=== PATIENT | female | born 1975 | race American Indian/Alaskan Native ===

== ENCOUNTER 2018-12-05 11:41 | Emergency (ER) | payer SELFPAY ==
[2018-12-05] MEDS ORDERED: ATIVAN IM ONE (12:17)
[2018-12-05] MEDS ORDERED: GEODON IM ONE (12:17)
[2018-12-05 13:28] LABS: Hematocrit 40.7 % (30.3-42.9); Hemoglobin 13.7 gm/dl (10.1-14.3); Mean Corpuscular HGB Conc 34 % (30-34); Mean Corpuscular Volume 89 fl (79-97); Platelet Count 234 K/mm3 (140-440); Red Blood Count 4.58 M/mm3 (3.65-5.03); Red Cell Distribution Width 13.6 % (13.2-15.2)
[2018-12-05 13:40] LABS: Basophils % (Auto) 0.2 % (0.0-1.8); Eosinophils # (Auto) 0.1 K/mm3 (0.0-0.4); Eosinophils % (Auto) 1.8 % (0.0-4.3); Lymphocytes # (Auto) 2.1 K/mm3 (1.2-5.4); Lymphocytes % (Auto) 33.8 % (13.4-35.0); Monocytes # (Auto) 0.5 K/mm3 (0.0-0.8); Monocytes % (Auto) 7.3 % (0.0-7.3)
[2018-12-05 13:45] LABS: BUN/Creatinine Ratio 18; Blood Urea Nitrogen 9 mg/dL (7-17); Calcium 9.1 mg/dL (8.4-10.2); Hemolysis Index 28
[2018-12-05 13:46] LABS: Creatine Kinase MB 1.5 ng/mL (0.0-4.0)
--- NOTE | 2018-12-05 14:04 | Emergency Department Report ---
ED General Adult HPI - General Chief complaint: Psych Stated complaint: WITHDRAWLS Time Seen by Provider: 12/05/18 12:03 Source: EMS Mode of arrival: Stretcher Limitations: Altered Mental Status - History of Present Illness Initial comments: 43-year-old female who is in the [facility]. There is little information available about this patient. Apparently she has been agitated today. Current medications includes Suboxone Ativan Trileptal Paxil trazodone and Seroquel. Apparently she has a history of a psychotic disorder. Patient is essentially poorly cooperative with exam. She is oriented to her name and fact that she is in a hospital. She is agitated. She is not providing very much information. Severity scale (0 -10): 0 - Related Data Allergies Allergy/AdvReac Type Severity Reaction Status Date / Time No Known Allergies Allergy Verified 12/05/18 11:58 ED Review of Systems ROS: Stated complaint: WITHDRAWLS Other details as noted in HPI Comment: Unobtainable due to pts medical conditions ED Past Medical Hx - Past Medical History Previous Medical History?: Yes Additional medical history: heroin addiction - Surgical History Past Surgical History?: No - Social History Smoking Status: Current Every Day Smoker Substance Use Type: Alcohol ED Physical Exam - General Limitations: Other (agitated) General appearance: alert, in no apparent distress - Head Head exam: Present: atraumatic, normocephalic - Eye Eye exam: Present: normal appearance. Absent: scleral icterus - ENT ENT exam: Present: mucous membranes moist - Neck Neck exam: Present: normal inspection. Absent: tenderness, meningismus - Respiratory Respiratory exam: Present: normal lung sounds bilaterally. Absent: respiratory distress - Cardiovascular Cardiovascular Exam: Present: regular rate, normal rhythm. Absent: systolic murmur, diastolic murmur, rubs, gallop - GI/Abdominal GI/Abdominal exam: Present: soft, normal bowel sounds. Absent: distended, tende rness, guarding, rebound, rigid - Extremities Exam Extremities exam: Present: normal inspection - Back Exam Back exam: Present: normal inspection - Neurological Exam Neurological exam: Present: alert, oriented X3 (basically), CN II-XII intact (as testable). Absent: motor sensory deficit - Psychiatric Psychiatric exam: Present: normal affect, normal mood - Skin Skin exam: Present: warm, dry, intact, normal color. Absent: rash ED Course Vital Signs 12/05/18 12/05/18 12/05/18 12:00 12:14 12:16 Temperature 98.2 F Pulse Rate 84 Respiratory 16 Rate Blood Pressure 116/83 O2 Sat by Pulse 93 98 96 Oximetry 12/05/18 12/05/18 12:25 12:30 Temperature 98.2 F Pulse Rate 89 Respiratory 19 Rate Blood Pressure 104/74 O2 Sat by Pulse 97 Oximetry - Reevaluation(s) Reevaluation #1: She was given Geodon and Ativan with improvement. She is placed on a 1013. Mental health consultation is pending. She will be given when necessary Geodon and Ativan at this point. 12/05/18 14:12 ED Medical Decision Making - Lab Data Result diagrams: 12/05/18 12:58 12/05/18 12:58 Laboratory Results - last 24 hr 12/05/18 12/05/18 12/05/18 12:58 12:58 12:58 WBC RBC Hgb Hct MCV MCH MCHC RDW Plt Count Lymph % (Auto) [place] % (Auto) Eos % (Auto) Baso % (Auto) Lymph # [place] # Eos # Baso # Seg Neutrophils % Seg Neutrophils # Sodium 140 Potassium 3.8 Chloride 104.6 Carbon Dioxide 24 Anion Gap 15 BUN 9 Creatinine 0.5 L Estimated GFR > 60 BUN/Creatinine Ratio 18 Glucose 104 H Calcium 9.1 Total Creatine Kinase CK-MB (CK-2) CK-MB (CK-2) Rel Index Salicylates 4.7 Acetaminophen < 5.0 L Plasma/Serum Alcohol 12/05/18 12/05/18 12/05/18 12:58 12:58 12:58 WBC 6.4 RBC 4.58 Hgb 13.7 Hct 40.7 MCV 89 MCH 30 MCHC 34 RDW 13.6 Plt Count 234 Lymph % (Auto) 33.8 [place] % (Auto) 7.3 Eos % (Auto) 1.8 Baso % (Auto) 0.2 Lymph # 2.1 [place] # 0.5 Eos # 0.1 Baso # 0.0 Seg Neutrophils % 56.9 Seg Neutrophils # 3.5 Sodium Potassium Chloride Carbon Dioxide Anion Gap BUN Creatinine Estimated GFR BUN/Creatinine Ratio Glucose Calcium Total Creatine Kinase 94 CK-MB (CK-2) 1.5 CK-MB (CK-2) Rel Index 1.5 Salicylates Acetaminophen Plasma/Serum Alcohol < 0.01 Laboratory Results - last 24 hr 12/05/18 12/05/18 12/05/18 12:58 12:58 12:58 WBC RBC Hgb Hct MCV MCH MCHC RDW Plt Count Lymph % (Auto) [place] % (Auto) Eos % (Auto) Baso % (Auto) Lymph # [place] # Eos # Baso # Seg Neutrophils % Seg Neutrophils # Sodium 140 Potassium 3.8 Chloride 104.6 Carbon Dioxide 24 Anion Gap 15 BUN 9 Creatinine 0.5 L Estimated GFR > 60 BUN/Creatinine Ratio 18 Glucose 104 H Calcium 9.1 Total Creatine Kinase CK-MB (CK-2) CK-MB (CK-2) Rel Index Salicylates 4.7 Acetaminophen < 5.0 L Plasma/Serum Alcohol 12/05/18 12/05/18 12/05/18 12:58 12:58 12:58 WBC 6.4 RBC 4.58 Hgb 13.7 Hct 40.7 MCV 89 MCH 30 MCHC 34 RDW 13.6 Plt Count 234 Lymph % (Auto) 33.8 [place] % (Auto) 7.3 Eos % (Auto) 1.8 Baso % (Auto) 0.2 Lymph # 2.1 [place] # 0.5 Eos # 0.1 Baso # 0.0 Seg Neutrophils % 56.9 Seg Neutrophils # 3.5 Sodium Potassium Chloride Carbon Dioxide Anion Gap BUN Creatinine Estimated GFR BUN/Creatinine Ratio Glucose Calcium Total Creatine Kinase 94 CK-MB (CK-2) 1.5 CK-MB (CK-2) Rel Index 1.5 Salicylates Acetaminophen Plasma/Serum Alcohol < 0.01 Critical care attestation.: If time is entered above; I have spent that time in minutes in the direct care of this critically ill patient, excluding procedure time. ED Disposition Clinical Impression: Acute psychosis Disposition: DC/TX-65 PSY HOSP/PSY UNIT Is pt being admited?: No Does the pt Need Aspirin: No Condition: Stable Time of Disposition: 14:16
[2018-12-05] MEDS ORDERED: ALUM-MAG HYDROX-SIMETH 200-200-20MG/5ML PO PRN (14:19)
[2018-12-05] MEDS ORDERED: MILK OF MAGNESIA PO PRN (14:19)
[2018-12-05] MEDS: ATIVAN PO SCH ×2 (19:00→22:03)
[2018-12-05] MEDS: GEODON PO SCH ×2 (19:00→22:03)
[2018-12-05 19:17] LABS: Bilirubin,Urine NEG (Negative); Blood,Urine NEG (Negative); Color,Urine Yellow (Yellow); Mucus,Urine FEW /HPF; Protein,Urine <15 mg/dL mg/dL (Negative); Urobilinogen,Urine < 2.0 mg/dL (<2.0)
[2018-12-05 19:23] LABS: Amphetamine Screen,Urine PRESUMPTIVE NEGATIVE; Benzodiazepines Screen,Urine PRESUMPTIVE NEGATIVE; Cannabinoid Screen,Urine PRESUMPTIVE NEGATIVE; Cocaine Screen,Urine PRESUMPTIVE NEGATIVE
[2018-12-05 19:50] LABS: Methadone Screen,Urine PRESUMPTIVE POSITIVE; Opiate Screen,Urine PRESUMPTIVE POSITIVE
[2018-12-06] MEDS: GEODON PO SCH (10:15)
[2018-12-06] MEDS: ATIVAN PO SCH (10:15)
[2018-12-06] MEDS ORDERED: ZOFRAN ODT ONE (12:29)
[2018-12-06] MEDS ORDERED: ZOFRAN ODT PO ONE (12:29)
[2018-12-06] MEDS: TYLENOL PO PRN (12:30)
--- NOTE | 2018-12-06 13:31 | Consultation ---
History of Present Illness - Reason for Consult Consult date: 12/06/18 Reason for consult: Mental Health Evaluation Requesting physician: DEVON ALLISON - Chief Complaint Chief complaint: "I feel horrible" - History of Present Psychiatric Illness 43-year-old white female who presented to the ER from [facility]. Psychiatry was consulted to see the patient because bizzare behavior. Today the patient is calm during the assessment. She could not explain what happened yesterday at [facility] logically. She stated that she last used heroin 2 days ago and feel horrible at this time. She stated that her body "hurts" and feel "very anxious." She acknowledged SI's yesterday because she was feeling "bad." She denies SI's when asked today. She stated that she has a hx of depression and opiate abuse. She state that she take Paxil. She denies SI/HI's and AVH's. She stated that her sleep is "off," but denies a poor appetite. She denies alcohol consumption and recreational drug use. Medications and Allergies Allergies Allergy/AdvReac Type Severity Reaction Status Date / Time No Known Allergies Allergy Verified 12/05/18 14:22 Active Meds: Active Medications Acetaminophen (Tylenol) 650 mg PO Q4HR PRN PRN Reason: Pain MILD(1-3)/Fever >100.5/CEJA Last Admin: 12/06/18 12:30 Dose: 650 mg Documented by: Al Hydrox/Mg Hydrox/Simethicone (Alum-Mag Hydrox-Simeth [phone]/5ml) 30 ml PO Q4HR PRN PRN Reason: Indigestion Lorazepam (Ativan) 1 mg IV Q12HR PRN PRN Reason: Agitation Magnesium Hydroxide (Milk Of Magnesia) 30 ml PO Q12HR PRN PRN Reason: Constipation Ziprasidone (Geodon) 10 mg IM Q12H PRN PRN Reason: Agitation Past psychiatric history - Past Medical History Past Medical History: No medical history Past Surgical History: No surgical history - past Psychiatric treatment and history psychiatric treatment history: Hx of alcohol and substance abuse. Denies a fam psy hx. - Social History Social history: Lives alone Mental Status Exam - Vital signs Last Vital Signs Temp 98.0 F 12/06/18 08:00 Pulse 68 12/06/18 08:00 Resp 16 12/06/18 08:00 BP 114/62 12/06/18 08:00 Pulse Ox 98 12/06/18 08:00 - Exam Narrative exam: MSE: Appearance: calm, cooperative Behavior: regular eye contact Speech: regular rate and tone Mood: "bad' Affect: flat Thought Process: circumstantial Thought Content: denies SI/HI's and VH's Motor Activity: sitting up in bed Cognition: A/O x3 Insight: variable Judgment: variable Results Result Diagrams: 12/05/18 12:58 12/05/18 12:58 Abnormal lab results 12/05/18 12/05/18 Range/Units 12:58 12:58 Creatinine 0.5 L (0.7-1.2) mg/dL Glucose 104 H (65-100) mg/dL Acetaminophen < 5.0 L (10.0-30.0) ug/mL All other labs normal. Assessment and Plan Assessment and plan: Impression: Hx of Depressiopn. Opioid Use DO. Today the patent is calm during the assessment. Recommendation/Plan: Reevaluate 1013 in 24 hours. Sart Paxil 10 mg PO HS for depression, Clonidine 0.05 mg PO BID for anxiety, Robaxin 500 mg PO BID for muscle aches. Vistaril 25 mg PO Q6hrs PRN for acute anxiety. Discussed possible suicidality/medication induced memo/priapism with the patient reference Paxil. Dispo: If the 1013 is rescinded in 24 hours, the patient can follow up with [facility] and [facility] for outpatient psy services. Will staff with Dr Danielle Rodrigues.
[2018-12-06] MEDS: CATAPRES PO SCH (14:31)
[2018-12-06] MEDS: ROBAXIN PO SCH (14:31)
[2018-12-06] MEDS: ATIVAN IV PRN (18:04)
[2018-12-06] MEDS: VISTARIL PO PRN (19:03)
[2018-12-06] MEDS: GEODON IM PRN (20:00)
[2018-12-06] MEDS: PAXIL PO SCH (23:30)
[2018-12-07] MEDS: CATAPRES PO SCH ×3 (00:03→22:15)
[2018-12-07] MEDS: ROBAXIN PO SCH ×3 (00:04→22:15)
[2018-12-07] MEDS ORDERED: MAGNESIUM SULFATE 2GM/50ML 0 GM/0 ML BAG IV ONE (07:16)
[2018-12-07] MEDS: ATIVAN IV PRN ×2 (08:01→15:29)
[2018-12-07] MEDS ORDERED: WATER FOR INJ Sterile (PF) 10 ML ONE (09:17)
[2018-12-07] MEDS: GEODON IM PRN ×2 (09:22→15:30)
[2018-12-07] MEDS: VISTARIL PO PRN (11:55)
--- NOTE | 2018-12-07 13:17 | Progress Note ---
Subjective - Reason for Consult Reason for consult: withdrawal syndrome - Chief Complaint Chief complaint: Subjective patient continues to have persistence in severe withdrawal symptoms. She is very dysphoric and tearful today. Patient was fairly labile and unable to create her own coherent plan to address her mental health care. Additionally, patient struggled through formulates a coherent narrative of how she ended up at [facility]. Patient I reviewed her symptoms and decided the best for her to transition to inpatient care to detox from opiates and potentially get on Suboxone standing dose. Currently patient appears to be having signs and symptoms of severe mood lability. It's unclear if this is primarily related to withdrawal syndrome or if she has an underlying mood disorder. It is clear, she is having severe anxiety that's comorbid in this episode. General Appearance: disheveled, in distress Sensorium/Consciousness: sedated Orientation: person, place, time and situation Eye Contact: limited Attitude / Behavior: distracted Psychomotor & Musculoskeletal Activity: PMA Mood: not good Affect: labile Speech / Language: increased rate Thought Processes: concrete Thought Content: no SI, preoccupied, cognitive distortions Perception: no AVH Insight: limited Judgement: limitied Capacity for ADLs: independent Plan: Refer for inpatient care to address severe mood disorder as well as to get her on Suboxone maintenance Reassess in 24 hours Mental Status Exam - Vital signs Last Vital Signs Temp 98.4 F 12/07/18 08:00 Pulse 91 H 12/07/18 08:00 Resp 16 12/07/18 08:00 BP 110/63 12/07/18 08:00 Pulse Ox 100 12/07/18 08:00
[2018-12-07] MEDS ORDERED: HALDOL IM ONE (16:44)
[2018-12-07] MEDS: TYLENOL PO PRN (16:55)
[2018-12-07] MEDS: TRILEPTAL PO SCH (22:15)
[2018-12-07] MEDS: PAXIL PO SCH (22:15)
[2018-12-08] MEDS: ATIVAN IV PRN (08:09)
[2018-12-08] MEDS: CATAPRES PO SCH (10:10)
[2018-12-08] MEDS: ROBAXIN PO SCH (10:11)
[2018-12-08] MEDS: TRILEPTAL PO SCH (10:11)
--- NOTE | 2018-12-08 10:30 | Progress Note ---
Subjective - Reason for Consult Consult date: 12/08/18 Reason for consult: Psychiatry Follow-up - Chief Complaint Chief complaint: 'I will return to [facility]" 43-year-old white female who presented to the ER from [facility]. Psychiatry was consulted to see the patient because bizarre behavior. Today the patient is calm and cooperative during the assessment. She stated that she will continue her treatment at [facility] when discharged. She stated that she look forward to be better life. She denies SI/HI's, AVH's, and being depressed. She stated that she is "A little anxious." She denies any side effects of her medications. Mental Status Exam - Vital signs Last Vital Signs Temp 98.4 F 12/08/18 07:30 Pulse 99 H 12/08/18 10:10 Resp 16 12/08/18 07:30 BP 111/73 12/08/18 10:10 Pulse Ox 98 12/08/18 07:30 - Exam Narrative exam: MSE: Appearance: calm, cooperative Behavior: regular eye contact Speech: regular rate and tone Mood: "better"' Affect: congruent to mood Thought Process: linear Thought Content: denies SI/HI's and AVH's Motor Activity: sitting up in bed Cognition: A/O x3 Insight: appropriate Judgment: appropriate Assessment and Plan Impression: Hx of Depressiopn. Opioid Use DO. Additional DO: Unspecified Anxiety DO. Today the patent is calm and cooperative during the assessment. The patient is no threat to self. Recommendation/Plan: Rescind 1013. Continue Paxil 10 mg PO HS for depression, Vistaril 25 mg PO Q6hrs PRN for acute anxiety, and home medication Trileptal 300 mg PO BID. Discussed possible suicidality/medication induced memo with the patient reference Paxil. Dispo: The patient will return back to [facility] once discharged. Will staff with Dr Danielle Rodrigues.
[2018-12-08 13:51] VITALS: BP 107/68
== END 2018-12-08 13:05 ==
LOC: ED 11:41
DX: F23 Brief psychotic disorder (principal); R45.1 Restlessness and agitation; F17.200 Nicotine dependence, unspecified, uncomplicated
CPT/HCPCS: 36415; 80048; 80307; 81001; 82550; 82553; 84703; 85025; 96372; 96374; 99284; G0480; J1630; J2060; J3486; 80320; J3475; Q0162; Q0177